=== PATIENT | female | born 1955 | race Caucasian/White ===

== ENCOUNTER 2017-01-25 17:08 | Inpatient (IN) | payer OTHER ==
[~2017-01-25] VITALS: Ht 165.1 cm; Wt 76.1 kg
[~2017-01-25 17:08] MED LIST: CALC500T51 PO; CHOL20002 PO; LEVO150T5 PO; METH4TAB6 PO
[2017-01-25] MEDS ORDERED: ONDANSETRON 2MG/ML, 2ML IVPush ONE (17:30)
[2017-01-25] MEDS ORDERED: SODIUM CHLORIDE 0.9% 1,000ML IVBOLUS ONE (17:30)
[2017-01-25] MEDS ORDERED: SODIUM CHLORIDE FLUSH 10ML SYR IVF ONE (17:30)
[2017-01-25] MEDS ORDERED: MORPHINE SULFATE 4 MG/ML, 1ML IVPush PRN (17:30)
[2017-01-25 17:36] LABS: HEMATOCRIT 44.7 % (34.6-47.8); HEMOGLOBIN 14.7 g/dL (11.7-16.4); WHITE BLOOD COUNT 15.7 x10^3/uL (3.4-10)
[2017-01-25 17:49] LABS: ASPARTATE AMINO TRANSFERASE 14 U/L (15-37); BLOOD UREA NITROGEN 15 mg/dL (7-18)
[2017-01-25] MEDS ORDERED: OMNIPAQUE 350 MG/ML, 150 ML BOTTLE ONE (18:26)
[2017-01-25] MEDS ORDERED: LEVO137T3 PO (19:38)
[2017-01-25] MEDS ORDERED: SODIUM CHLORIDE FLUSH 10ML SYR IVF PRN (20:00)
[2017-01-25] MEDS ORDERED: LORazepam 2 MG/ML, 1ML IVPush PRN (21:30)
[2017-01-25] MEDS ORDERED: ENOXAPARIN 40 MG/0.4 ML SQ SCH (21:30)
[2017-01-25] MEDS ORDERED: PROMETHAZINE 25 MG/ML, 1ML IM PRN (21:30)
[2017-01-25] MEDS ORDERED: ONDANSETRON 2MG/ML, 2ML IVPush PRN (21:30)
[2017-01-25 22:02] LABS: IS PT STATUS REG ER OR PRE ER? YES
[2017-01-25 23:03] VITALS: BP 122/82
[2017-01-25] MEDS: SODIUM CHLORIDE 0.9% 1,000 ML IV SCH (23:40)
[2017-01-26] MEDS: FAMOTIDINE 20 MG/2 ML IVPush SCH ×2 (00:25→09:00)
[2017-01-26] MEDS: ACETAMINOPHEN 650 MG/20.3 ML UDC PO PRN ×2 (00:43→07:34)
[2017-01-26 01:31] VITALS: BP 113/75
[2017-01-26 05:32] LABS: HEMATOCRIT 39.8 % (34.6-47.8); HEMOGLOBIN 13.2 g/dL (11.7-16.4)
[2017-01-26 05:50] LABS: BLOOD UREA NITROGEN 12 mg/dL (7-18)
[2017-01-26] MEDS: SODIUM CHLORIDE 0.9% 1,000 ML IV SCH (07:34)
[2017-01-26 10:50] VITALS: BP 125/80
[2017-01-26 15:49] VITALS: BP 105/71
== END 2017-01-26 16:39 | disposition home or self-care (01) | DRG 392 ==
LOC: ED 19:32 → EDIP 19:33 → ED 19:47 → 4NOR 22:52 → DCLOUNGE 01-26 16:21
PROVIDERS: ADMIT Hospitalist; ATTEND Hospitalist
DX: K22.2 Esophageal obstruction (principal); R13.14 Dysphagia, pharyngoesophageal phase; D72.829 Elevated white blood cell count, unspecified; E03.9 Hypothyroidism, unspecified; R07.89 Other chest pain; Z85.3 Personal history of malignant neoplasm of breast; Z87.891 Personal history of nicotine dependence; Z90.710 Acquired absence of both cervix and uterus
CPT/HCPCS: 36415; 74220; 74250; 80048; 80053; 83690; 84484; 85025; 93005; 99285; J2405; Q9967; J7030; S0028

== ENCOUNTER → 2017-10-19 | Outpatient (CLI) | payer OTHER ==
[~2017-10-19] MED LIST changes: +LEVO137T3 PO
== END | disposition home or self-care (01) ==
LOC: CFH 07:55
PROVIDERS: ATTEND Family Medicine
DX: D49.89 Neoplasm of unspecified behavior of other specified sites (principal); I89.0 Lymphedema, not elsewhere classified
CPT/HCPCS: 76642; 77066

== ENCOUNTER → 2017-11-09 | Outpatient (CLI) | payer OTHER ==
[~2017-11-09] MED LIST changes: +LIDOCAINE 1%, 20ML ONE; +LIDOCAINE 1%-EPI 1:100K, 20ML ONE; +SODIUM BICARBONATE 4.0%, 5ML ONE
== END | disposition home or self-care (01) ==
LOC: CFH 09:53
PROVIDERS: ATTEND Family Medicine
DX: N60.12 Diffuse cystic mastopathy of left breast (principal); Z87.891 Personal history of nicotine dependence; Z85.3 Personal history of malignant neoplasm of breast; Z79.899 Other long term (current) drug therapy
CPT/HCPCS: 19083; 77065; 88305; J3490

== ENCOUNTER → 2019-11-27 | Outpatient (CLI) | payer OTHER ==
[~2019-11-27] MED LIST changes: -CHOL20002 PO; +CHOL200052 PO; -LIDOCAINE 1%, 20ML ONE; -LIDOCAINE 1%-EPI 1:100K, 20ML ONE; -SODIUM BICARBONATE 4.0%, 5ML ONE
== END | disposition home or self-care (01) ==
LOC: CFH 12:54
PROVIDERS: ATTEND Family Medicine
DX: Z12.31 Encounter for screening mammogram for malignant neoplasm of breast (principal); Z86.000 Personal history of in-situ neoplasm of breast
CPT/HCPCS: 76641; 77063; 77067

== ENCOUNTER → 2019-12-01 | Outpatient (CLI) | payer OTHER ==
[~2019-12-01] MED LIST changes: +LEVO125T5 PO
== END | disposition home or self-care (01) ==
LOC: STAR 09:02
PROVIDERS: ATTEND Surgery
DX: Z01.818 Encounter for other preprocedural examination (principal); Z11.59 Encounter for screening for other viral diseases
CPT/HCPCS: 36415; 80053; 85025; 87635; 93005

== ENCOUNTER 2019-12-04 05:55 | Inpatient (IN) | payer OTHER ==
[2019-12-01 10:03] LABS: BASOPHILS # (AUTO) 0.04 x10^3/uL (0-0.1); BASOPHILS % (AUTO) 1 % (0-1); EOSINOPHILS # (AUTO) 0.15 x10^3/uL (0-0.4); EOSINOPHILS % (AUTO) 2 % (1-7); LYMPHOCYTES # (AUTO) 1.64 x10^3/uL (1-3.4); LYMPHOCYTES % (AUTO) 25 % (22-44); MD NO; MEAN CORPUSCULAR HEMOGLOBIN 24.9 pg (27.0-34.8); MEAN CORPUSCULAR HGB CONC 31.2 g/dL (32.4-35.8); MEAN CORPUSCULAR VOLUME 79.8 fL (80-100); MEAN PLATELET VOLUME 7.6 fL (7.4-10.4); MONOCYTES # (AUTO) 0.74 x10^3/uL (0.2-0.8); MONOCYTES % (AUTO) 11 % (2-9); NEUTROPHILS # (AUTO) 3.99 x10^3/uL (1.8-6.8); NEUTROPHILS % (AUTO) 61 % (42-75); PLATELET COUNT 359 x10^3/uL (130-400); RED BLOOD COUNT 4.17 x10^6/uL (3.82-5.3); RED CELL DISTRIBUTION WIDTH 17.7 % (9.6-15.2)
[2019-12-01 10:12] LABS: ALANINE AMINOTRANSFERASE 22 U/L (12-78); ALBUMIN 3.7 g/dL (3.4-5.0); ANION GAP 4 mmol/L (5-15); CALCIUM 8.9 mg/dL (8.5-10.1); CHLORIDE 110 mmol/L (98-107); CREATININE 0.74 mg/dL (0.55-1.02)
[2019-12-01 10:13] LABS: ALKALINE PHOSPHATASE 96 U/L (45-117); BILIRUBIN,TOTAL 0.3 mg/dL (0.2-1.0); TOTAL PROTEIN 7.1 g/dL (6.4-8.2)
[~2019-12-04] VITALS: Ht 165.1 cm; Wt 79.0 kg
[2019-12-04] MEDS ORDERED: CHLORHEXIDINE 15 ML UDC MM STA (06:10)
[2019-12-04] MEDS ORDERED: LACTATED RINGERS 1,000 ML IV ONE (06:10)
[2019-12-04] MEDS ORDERED: BUPIVACAINE/PF-EPI 0.5% 1:200K ONE (06:13)
[2019-12-04] MEDS ORDERED: INDOCYANINE GREEN 25 MG VIAL ONE (06:13)
[2019-12-04] MEDS ORDERED: FAMOTIDINE 20 MG TABLET PO STA (06:48)
[2019-12-04] MEDS ORDERED: ACETAMINOPHEN 500 MG TABLET PO STA (06:48)
[2019-12-04] MEDS ORDERED: FAMOTIDINE 20 MG TABLET ONE (06:49)
[2019-12-04] MEDS ORDERED: ACETAMINOPHEN 500 MG TABLET ONE (06:50)
[2019-12-04] MEDS ORDERED: PROPOFOL 50 ML ONE ×2 (06:51→08:29)
[2019-12-04] MEDS ORDERED: MIDAZOLAM 1 MG/ML, 2ML ONE (06:52)
[2019-12-04] MEDS ORDERED: FENTANYL PF 250 MCG/5ML ONE (06:52)
[2019-12-04] MEDS ORDERED: DEXAMETHASONE 4 MG/ML, 1ML ONE (07:02)
[2019-12-04] MEDS ORDERED: CEFOTETAN PMX 2GM/50ML 50 ML ONE (07:02)
[2019-12-04] MEDS ORDERED: ROCURONIUM 10 MG/ML,10ML ONE (07:05)
[2019-12-04] MEDS ORDERED: BUPIVACAINE/PF 0.25% ONE ×2 (08:01)
[2019-12-04] MEDS ORDERED: ONDANSETRON 2MG/ML, 2ML ONE (08:49)
[2019-12-04] MEDS ORDERED: ONDANSETRON 2MG/ML, 2ML IVPush PRN (09:00)
[2019-12-04] MEDS ORDERED: HYDROmorphone 1 MG/ML, 1ML INJ IVPush PRN (09:00)
[2019-12-04] MEDS ORDERED: LABETALOL 5MG/ML, 20ML IV PRN (09:00)
[2019-12-04] MEDS ORDERED: MEPERIDINE/PF 25MG/0.5ML IVPush PRN (09:00)
[2019-12-04] MEDS ORDERED: OXYcodone 5 MG/5 ML ORAL.SOL UDC PO PRN (09:00)
[2019-12-04] MEDS ORDERED: PROMETHAZINE 25 MG/ML, 1ML IVPush PRN (09:00)
[2019-12-04] MEDS ORDERED: hydrALAzine 20 MG/ML, 1ML IV PRN (09:00)
[2019-12-04] MEDS ORDERED: OXYcodone 5 MG/5 ML ORAL.SOL UDC ONE (09:49)
[2019-12-04] MEDS ORDERED: FENTANYL PF 100 MCG/2ML ONE ×2 (09:49→10:45)
[2019-12-04] MEDS: FENTANYL PF 100 MCG/2ML IV PRN ×4 (09:53→11:01)
[2019-12-04] MEDS ORDERED: MEPERIDINE/PF 25MG/ML,1ML ONE (11:07)
[2019-12-04] MEDS ORDERED: ONDANSETRON 2MG/ML, 2ML IV PRN (13:00)
[2019-12-04] MEDS ORDERED: OXYcodone IR 5MG TABLET PO PRN (13:00)
[2019-12-04] MEDS ORDERED: DIPHENHYDRAMINE 50 MG/ML, 1ML IVPush PRN (13:00)
[2019-12-04] MEDS: D5%-0.45NACL+KCL 20MEQ 1,000 ML IV SCH (14:00)
[2019-12-04] MEDS: ACETAMINOPHEN 500 MG TABLET PO SCH ×2 (14:22→20:42)
[2019-12-04] MEDS: GABAPENTIN 300 MG CAPSULE PO SCH ×2 (16:32→20:42)
[2019-12-04 19:57] VITALS: BP 97/61
[2019-12-04] MEDS: LEVOTHYROXINE 125 MCG TABLET PO SCH (20:59)
[2019-12-05 00:18] VITALS: BP 92/61
[2019-12-05] MEDS: ACETAMINOPHEN 500 MG TABLET PO SCH ×4 (01:57→20:42)
[2019-12-05 03:52] VITALS: BP 99/64
[2019-12-05] MEDS: D5%-0.45NACL+KCL 20MEQ 1,000 ML IV SCH ×2 (04:18→15:12)
[2019-12-05 05:05] LABS: ANION GAP 6 mmol/L (5-15); CALCIUM 8.3 mg/dL (8.5-10.1); CHLORIDE 111 mmol/L (98-107); CREATININE 0.65 mg/dL (0.55-1.02)
[2019-12-05 05:10] LABS: BASOPHILS # (AUTO) 0.03 x10^3/uL (0-0.1); BASOPHILS % (AUTO) 0 % (0-1); EOSINOPHILS # (AUTO) 0.04 x10^3/uL (0-0.4); EOSINOPHILS % (AUTO) 0 % (1-7); LYMPHOCYTES # (AUTO) 1.55 x10^3/uL (1-3.4); LYMPHOCYTES % (AUTO) 16 % (22-44); MD NO; MEAN CORPUSCULAR HEMOGLOBIN 25.5 pg (27.0-34.8); MEAN CORPUSCULAR HGB CONC 32.1 g/dL (32.4-35.8); MEAN CORPUSCULAR VOLUME 79.5 fL (80-100); MEAN PLATELET VOLUME 8.3 fL (7.4-10.4); MONOCYTES # (AUTO) 0.98 x10^3/uL (0.2-0.8); MONOCYTES % (AUTO) 10 % (2-9); NEUTROPHILS # (AUTO) 7.04 x10^3/uL (1.8-6.8); NEUTROPHILS % (AUTO) 73 % (42-75); PLATELET COUNT 294 x10^3/uL (130-400); RED BLOOD COUNT 3.54 x10^6/uL (3.82-5.3); RED CELL DISTRIBUTION WIDTH 16.8 % (9.6-15.2)
[2019-12-05] MEDS ORDERED: LEVOTHYROXINE 125 MCG TABLET PO SCH (06:00)
[2019-12-05 07:27] VITALS: BP 100/65
[2019-12-05] MEDS: ENOXAPARIN 40 MG/0.4 ML SQ SCH (08:14)
[2019-12-05] MEDS: CALCIUM CARBONATE 500 MG TABLET PO SCH (08:14)
[2019-12-05] MEDS: CHOLECALCIFEROL 1,000 UNIT TABLET PO SCH (08:15)
[2019-12-05] MEDS: GABAPENTIN 300 MG CAPSULE PO SCH ×3 (08:15→20:42)
[2019-12-05] MEDS: FERROUS SULFATE 325 MG TABLET PO SCH (08:15)
[2019-12-05 13:30] VITALS: BP 105/70
[2019-12-05 18:46] VITALS: BP 92/60
[2019-12-05] MEDS: LEVOTHYROXINE 125 MCG TABLET PO SCH (20:42)
[2019-12-06] MEDS: ACETAMINOPHEN 500 MG TABLET PO SCH ×2 (02:02→08:39)
[2019-12-06 02:29] VITALS: BP 107/72
[2019-12-06 05:21] LABS: ALBUMIN 2.8 g/dL (3.4-5.0); CALCIUM 7.9 mg/dL (8.5-10.1); CHLORIDE 115 mmol/L (98-107)
[2019-12-06 05:27] LABS: BASOPHILS # (AUTO) 0.03 x10^3/uL (0-0.1); BASOPHILS % (AUTO) 0 % (0-1); EOSINOPHILS # (AUTO) 0.15 x10^3/uL (0-0.4); EOSINOPHILS % (AUTO) 2 % (1-7); LYMPHOCYTES # (AUTO) 2.21 x10^3/uL (1-3.4); LYMPHOCYTES % (AUTO) 31 % (22-44); MD NO; MEAN CORPUSCULAR HEMOGLOBIN 25.6 pg (27.0-34.8); MEAN CORPUSCULAR HGB CONC 32.2 g/dL (32.4-35.8); MEAN CORPUSCULAR VOLUME 79.5 fL (80-100); MEAN PLATELET VOLUME 7.9 fL (7.4-10.4); MONOCYTES # (AUTO) 0.67 x10^3/uL (0.2-0.8); MONOCYTES % (AUTO) 9 % (2-9); NEUTROPHILS # (AUTO) 4.12 x10^3/uL (1.8-6.8); NEUTROPHILS % (AUTO) 57 % (42-75); PLATELET COUNT 253 x10^3/uL (130-400); RED BLOOD COUNT 3.29 x10^6/uL (3.82-5.3); RED CELL DISTRIBUTION WIDTH 17.1 % (9.6-15.2)
[2019-12-06 05:30] LABS: ANION GAP 6 mmol/L (5-15); CREATININE 0.49 mg/dL (0.55-1.02)
[2019-12-06 06:51] VITALS: BP 106/72
[2019-12-06] MEDS: FERROUS SULFATE 325 MG TABLET PO SCH (08:40)
[2019-12-06] MEDS: CALCIUM CARBONATE 500 MG TABLET PO SCH (08:40)
[2019-12-06] MEDS: GABAPENTIN 300 MG CAPSULE PO SCH (08:40)
[2019-12-06] MEDS: CHOLECALCIFEROL 1,000 UNIT TABLET PO SCH (08:41)
[2019-12-06] MEDS: ENOXAPARIN 40 MG/0.4 ML SQ SCH (08:42)
[2019-12-06] MEDS: D5%-0.45NACL+KCL 20MEQ 1,000 ML IV SCH (08:54)
[2019-12-06] MEDS ORDERED: CELE200C PO (08:56)
[2019-12-06] MEDS ORDERED: ENOX40SY4 SQ (08:56)
[2019-12-06] MEDS ORDERED: GABA300C PO (08:56)
== END 2019-12-06 12:30 | disposition home or self-care (01) | DRG 331 ==
LOC: ORIP 05:55 → 4NE 11:59
PROVIDERS: ADMIT Surgery; ATTEND Surgery
PROC: 8E0W0CZ Robotic Assisted Procedure of Trunk Region, Open Approach (ICD-10-PCS; 2019-12-04)
PROC: 3E0T3BZ Introduction of Anesthetic Agent into Peripheral Nerves and Plexi, Percutaneous Approach (ICD-10-PCS; 2019-12-04)
PROC: 0DTF0ZZ Resection of Right Large Intestine, Open Approach (ICD-10-PCS; principal; 2019-12-04 07:00)
DX: C18.2 Malignant neoplasm of ascending colon (principal); Z20.828 Contact with and (suspected) exposure to other viral communicable diseases; Z88.5 Allergy status to narcotic agent
CPT/HCPCS: 36415; 80048; 80053; 82040; 85025; 86140; 86850; 86900; 87635; 88309; 93005; G0378; J1100; J1650; J2175; J2250; J2405; J2704; J3010; J3490; J7120

== ENCOUNTER 2020-12-10 12:46 | Outpatient (CLI) | payer OTHER ==
[~2020-12-10 12:46] MED LIST changes: +CELE200C PO; +ENOX40SY4 SQ; +GABA300C PO
== END 2020-12-10 23:59 | disposition home or self-care (01) ==
LOC: CFH 12:46
PROVIDERS: ATTEND Family Medicine
DX: Z12.31 Encounter for screening mammogram for malignant neoplasm of breast (principal); Z85.3 Personal history of malignant neoplasm of breast
CPT/HCPCS: 77063; 77067